=== PATIENT | female | born 1945 | race Caucasian/White ===

== ENCOUNTER 2017-04-08 21:23 | Emergency (ER) | payer MEDICARE ==
[~2017-04-08] VITALS: Ht 157.5 cm; Wt 52.7 kg
[~2017-04-08 21:23] MED LIST: CEPHALEXIN500 M1 PO; LEVOTHYROXINE0.1 MG PO
[2017-04-08 21:27] VITALS: BP 167/85; PULSE 55; TEMP 97
[2017-04-08 21:56] LABS: BASO # 0.1 (0.0-0.2); EOS # 0.4 (0.0-0.7); EOS % 5.2 % (0-4.0); GRAN % 55.9 % (42.2-75.2); HEMOGLOBIN 12.1 g/dl (12.5-16.0); LYMPH % 28.7 % (20.0-51.0); MEAN CELL VOLUME 92 fl (80.0-100.0); MEAN CORPUSCULAR HEMOGLOBIN 30 pg (27.0-31.0); MEAN CORPUSCULAR HGB CONC 33 g/dl (33.0-37.0); MEAN PLATELET VOLUME 12.2 fl (7.4-10.4); MONO # 0.7 (0.1-0.6); MONO % 9.1 % (1.7-9.3); PLATELET COUNT 204 K/mm3 (130-400); WHITE BLOOD COUNT 7.1 K/mm3 (4.8-10.8)
[2017-04-08 21:57] LABS: HEMATOCRIT 36.9 % (37.0-47.0)
[2017-04-08 22:18] LABS: CALCIUM 9.4 mg/dL (8.4-10.2); CREATININE, serum 0.71 mg/dL (0.52-1.25); POTASSIUM 4.1 mmol/L (3.4-5.0)
[2017-04-08] MEDS ORDERED: VOLTAREN 75 DR75 MG PO (22:48)
[2017-04-08] MEDS ORDERED: PREDNISONE20 MG PO (22:48)
== END 2017-04-08 23:30 | disposition home or self-care (01) ==
LOC: COL.ER 21:23
PROVIDERS: Emergency Medicine
DX: S76.012A Strain of muscle, fascia and tendon of left hip, initial encounter (principal); E03.9 Hypothyroidism, unspecified; Z85.3 Personal history of malignant neoplasm of breast; X50.1XXA Overexertion from prolonged static or awkward postures, initial encounter; W55.09XA Other contact with cat, initial encounter; Y92.009 Unspecified place in unspecified non-institutional (private) residence as the place of occurrence of the external cause
CPT/HCPCS: J1885; J7512